=== PATIENT | male | born 1990 | race Caucasian/White ===

== ENCOUNTER 2018-03-31 00:13 | Emergency (ER) | payer SELFPAY ==
[~2018-03-31] VITALS: Ht 190.5 cm; Wt 81.6 kg
--- NOTE | 2018-03-31 00:30 | NUR ---
Pt ambulated in ER with steady gait. Pt noted to have intermittent limp on left leg. Pt presents to ER with the c/o left lower back pain radiating to left lower extremity x 5 days but has worsened pain the last 2 days. Pt stated that he took 2 tablets of Exedrin at around 2030 03/30/18. VSS. Safe environment implemented.
--- NOTE | 2018-03-31 00:41 | NUR ---
Dr. Deluca at bedside for MSE
[2018-03-31] MEDS ORDERED: NAPROXEN 500 MG TABLET ONE (00:51)
[2018-03-31] MEDS ORDERED: predniSONE 50 MG TABLET ONE (00:51)
--- NOTE | 2018-03-31 00:59 | NUR ---
Patient discharged to home in stable conditon. Written and verbal after care instructions given. Patient verbalizes understanding of instructions. Patient ambulated out of ER with stable gait.
[2018-03-31 01:00] VITALS: BP 138/74
[2018-03-31] MEDS ORDERED: predniSONE 50 MG TABLET PO ONE (01:00)
[2018-03-31] MEDS ORDERED: NAPROXEN 500 MG TABLET PO ONE (01:00)
== END 2018-03-31 01:00 | disposition home or self-care (01) ==
LOC: ER 00:17
DX: M54.16 Radiculopathy, lumbar region (principal)
CPT/HCPCS: 99283; J7512; A4663